=== PATIENT | female | born 1990 | race Caucasian/White ===

== ENCOUNTER → 2016-11-30 | Outpatient (CLI) | payer BC, OTHER ==
[~2016-11-30] MED LIST: ACETAMINOPHEN; ALBUTEROL17 GM; ALBUTEROL17 GM INH; ALBUTEROL20 ml INH; ALDARA12 EA TOP; ATIVAN0.5 MG PO; BACTRIM DS TABL1 TA1 PO; BACTROBAN22 GM TOP; BENTYL10 MG PO; BENZONATATE PO; BIRTH CONTROL PILL PO; BROMPHED DM; BUSPAR5 MG PO; CELEXA PO; CIPRO PO; DIAZEPAM PO; DICLOFENAC PO; EFFEXOR75 MG PO; EXCEDRIN MIGRAI1 TA1; FAMOTIDINE PO; FLEXERIL10 M1 PO; IBUPROFEN; IBUPROFEN PO; IBUPROFEN800 MG PO; KEFLEX500 M1 PO; KLONOPIN0.5 MG PO; LORTAB 5/500 TA1 TA1 PO; MACROBID100 MG PO; NAPROXEN PO; NO MEDICATIONS; NUVARING V1 VAG.RING VG; PERCOCET 5-3251 TAB PO; PHENERGAN PO; PHENERGAN25 MG PO; POLYGESIC 5/5001 CAP PO; PREDNISONE; PREDNISONE PO; PREDNISONE10 MG PO; PRENATAL VITAMI1 TA3 PO; PRILOSEC PO; PRIMACORT TOP; PYRIDIUM PO; REMERON15 MG PO; SEROQUEL400 MG DOB; SLEEPING TABLET25 M1 PO; SPIRIVA18 MCG INH; SYMBICORT INH; VICODIN 5/500 T1 TAB PO; VICODIN PO; VOLTAREN75 MG PO; ZOLOFT; ZOLOFT50 MG PO; ZYCLARA1 EACH TP; ZYRTEC PO; ZYRTEC-D TABLE1 EACH
== END | disposition home or self-care (01) ==
LOC: CLAB 21:39
DX: K52.9 Noninfective gastroenteritis and colitis, unspecified (principal); R10.9 Unspecified abdominal pain
CPT/HCPCS: 82705; 83630; 87045; 87427; 87493; 87899